=== PATIENT | female | born 1950 | race Two or more races ===

== ENCOUNTER 2021-01-12 13:06 | Inpatient (IN) | payer OTHER ==
[2021-01-12 14:51] LABS: HEMATOCRIT 25.3 % (32.4-45.2); HEMOGLOBIN 8.5 GM/dL (10.7-15.3); MCH 31.3 pg (25.7-33.7); MCHC 33.5 g/dl (32.0-36.0); MEAN CELL VOLUME 93.3 fl (80-96); MEAN PLT VOLUME 8.8 fl (7.5-11.1); PLATELET COUNT 177 10^3/uL (134-434); RBC 2.71 M/mm3 (3.60-5.2); WHITE BLOOD COUNT 22.5 K/mm3 (4.0-10.0)
[2021-01-12 15:12] LABS: CALCIUM 7.8 mg/dL (8.5-10.1)
[2021-01-12 15:13] LABS: BLOOD UREA NITROGEN 19.8 mg/dL (7-18)
[2021-01-12 15:16] LABS: CREATININE 1.3 mg/dL (0.55-1.3)
[2021-01-12 15:17] LABS: BILIRUBIN,TOTAL 0.6 mg/dL (0.2-1)
[2021-01-12 15:18] LABS: TOT PROT 8.1 g/dl (6.4-8.2)
[2021-01-12 17:02] LABS: ANISOCYTOSIS 2+
[2021-01-12 17:03] LABS: PLATELET ESTIMATE DECREASED
[2021-01-12 18:54] LABS: EPI CELLS 32 /uL (0-25.1); HYALINE CASTS 11 /uL (0-3.1); PH,URINE 5.5 (5.0-8.0); URINE APPEARANCE CLOUDY; URINE BACTERIA >9,000 /uL (0-1359); URINE BILIRUBIN 1+ (NEGATIVE); URINE COLOR DK YELLOW; URINE GLUCOSE (UA) NEGATIVE (NEGATIVE); URINE KETONE TRACE (NEGATIVE); URINE LEUK ESTERASE 3+ (NEGATIVE); URINE NITRITE NEGATIVE (NEGATIVE); URINE PROTEIN 1+ (NEGATIVE); URINE RBC 16 /uL (0-23.9); URINE WBC 517 /uL (0-25.8)
[2021-01-12] MEDS ORDERED: SODIUM CHLORIDE 0.9% 500 ML INFUS.BAG IV ONE (19:13)
[2021-01-12] MEDS ORDERED: CEFTRIAXONE 1 GM/50 ML BAG ONE (19:23)
[2021-01-12] MEDS ORDERED: ACETAMINOPHEN 500 MG TABLET (FP) PO ONE (20:12)
[2021-01-12] MEDS ORDERED: ACETAMINOPHEN 325 MG TABLET (FP) ONE (20:32)
[2021-01-12] MEDS ORDERED: ACETAMINOPHEN 1000 MG/100 ML VIAL (NON FORMULARY) IVPB ONE (21:00)
[2021-01-12] MEDS ORDERED: ACETAMINOPHEN 1000 MG/100 ML VIAL (NON FORMULARY) IVPB PRN (21:06)
[2021-01-12] MEDS ORDERED: PANTOPRAZOLE SODIUM 40 MG VIAL ONE (22:03)
[2021-01-12] MEDS ORDERED: ENOXAPARIN NA (PORCINE) 40 MG/0.4 ML DISP.SYRIN SQ ONE (22:03)
[2021-01-12] MEDS ORDERED: PIPERACILLIN/TAZOB 3.375 GM 3.375 GM/50 ML BAG IVPB ONE (22:03)
[2021-01-12] MEDS: SODIUM CHLORIDE 1,000 ML IV SCH (22:38)
[2021-01-12] MEDS: PIPERACILLIN/TAZOB 3.375 GM 3.375 GM in DEXTROSE 5%-WATER - 50 ML IVPB SCH (22:38)
[2021-01-12] MEDS: ENOXAPARIN NA (PORCINE) 40 MG/0.4 ML DISP.SYRIN SQ SCH (22:38)
[2021-01-12] MEDS: PANTOPRAZOLE SODIUM 40 MG VIAL IVPUSH SCH (22:38)
[2021-01-12] MEDS: INSULIN SLIDING SCALE (NOVOLOG) 1 VIAL SQ SCH (22:38)
[2021-01-13] MEDS: FERROUS SO4 325 MG TABLET (FP) PO SCH ×2 (02:09→10:54)
[2021-01-13] MEDS ORDERED: PIPERACILLIN/TAZOBACTAM 3.375 GM VIAL IVPB ONE ×3 (02:12→17:17)
[2021-01-13] MEDS ORDERED: DEXTROSE 5%-WATER - 50 ML IVPB ONE ×3 (02:12→17:18)
[2021-01-13] MEDS: PIPERACILLIN/TAZOB 3.375 GM 3.375 GM in DEXTROSE 5%-WATER - 50 ML IVPB SCH ×3 (02:36→18:25)
[2021-01-13 03:04] VITALS: BMI 32.5
[2021-01-13] MEDS ORDERED: INSULIN (NOVOLOG) ASPART 100 UNITS/ML 10ML VIAL ONE (06:31)
[2021-01-13] MEDS: INSULIN SLIDING SCALE (NOVOLOG) 1 VIAL SQ SCH ×4 (07:18→22:01)
[2021-01-13 09:36] LABS: BASO % 0.2 % (0-2.0); EOS % 0.5 % (0-4.5); HEMATOCRIT 24.6 % (32.4-45.2); HEMOGLOBIN 8.3 GM/dL (10.7-15.3); LYMPH % 8.7 % (8-40); MCH 31.3 pg (25.7-33.7); MCHC 33.8 g/dl (32.0-36.0); MEAN CELL VOLUME 92.8 fl (80-96); MEAN PLT VOLUME 9.1 fl (7.5-11.1); MONO % 12.2 % (3.8-10.2); NEUT % 78.4 % (42.8-82.8); PLATELET COUNT 156 10^3/uL (134-434); RBC 2.65 M/mm3 (3.60-5.2); RDW 20.6 % (11.6-15.6); WHITE BLOOD COUNT 16.7 K/mm3 (4.0-10.0)
[2021-01-13 09:58] LABS: CALCIUM 7.2 mg/dL (8.5-10.1)
[2021-01-13 09:59] LABS: ALBUMIN 1.8 g/dl (3.4-5.0); BLOOD UREA NITROGEN 16.6 mg/dL (7-18); MAGNESIUM 1.4 mg/dL (1.8-2.4)
[2021-01-13] MEDS ORDERED: FLU VACC QS2021-22(6MOS UP)/PF 60 MCG/0.5 ML SYRINGE IM ONE (10:00)
[2021-01-13 10:02] LABS: CREATININE 0.8 mg/dL (0.55-1.3); PHOSPHOROUS 2.1 mg/dL (2.5-4.9)
[2021-01-13 10:03] LABS: BILIRUBIN,TOTAL 0.5 mg/dL (0.2-1)
[2021-01-13 10:04] LABS: TOT PROT 7.2 g/dl (6.4-8.2)
[2021-01-13] MEDS: PANTOPRAZOLE SODIUM 40 MG VIAL IVPUSH SCH (10:51)
[2021-01-13] MEDS: ENOXAPARIN NA (PORCINE) 40 MG/0.4 ML DISP.SYRIN SQ SCH (10:55)
[2021-01-13] MEDS: SODIUM CHLORIDE 1,000 ML IV SCH (11:23)
[2021-01-13] MEDS ORDERED: ONDANSETRON 4 MG/2 ML VIAL IVPB SCH (15:30)
[2021-01-13] MEDS ORDERED: ONDANSETRON 4 MG/2 ML VIAL IVPB PRN (22:26)
[2021-01-13] MEDS ORDERED: MELATONIN 5 MG TABLETS PO ONE (23:05)
[2021-01-13] MEDS: ACETAMINOPHEN 325 MG TABLET (FP) PO PRN (23:20)
[2021-01-14] MEDS ORDERED: PIPERACILLIN/TAZOBACTAM 3.375 GM VIAL IVPB ONE (00:56)
[2021-01-14] MEDS ORDERED: DEXTROSE 5%-WATER - 50 ML IVPB ONE (00:56)
[2021-01-14] MEDS: PIPERACILLIN/TAZOB 3.375 GM 3.375 GM in DEXTROSE 5%-WATER - 50 ML IVPB SCH (01:14)
[2021-01-14] MEDS: INSULIN SLIDING SCALE (NOVOLOG) 1 VIAL SQ SCH ×4 (06:03→21:26)
[2021-01-14 08:19] LABS: BASO % 0.2 % (0-2.0); EOS % 1.3 % (0-4.5); HEMATOCRIT 27.3 % (32.4-45.2); HEMOGLOBIN 9.1 GM/dL (10.7-15.3); LYMPH % 10.8 % (8-40); MCH 30.8 pg (25.7-33.7); MCHC 33.2 g/dl (32.0-36.0); MEAN CELL VOLUME 92.8 fl (80-96); MONO % 15.3 % (3.8-10.2); NEUT % 72.4 % (42.8-82.8); PLATELET COUNT 163 10^3/uL (134-434); RBC 2.94 M/mm3 (3.60-5.2); RDW 20.8 % (11.6-15.6); WHITE BLOOD COUNT 13.8 K/mm3 (4.0-10.0)
[2021-01-14 08:38] LABS: ALBUMIN 1.9 g/dl (3.4-5.0); BLOOD UREA NITROGEN 10.5 mg/dL (7-18); CALCIUM 7.9 mg/dL (8.5-10.1)
[2021-01-14 08:42] LABS: CREATININE 0.7 mg/dL (0.55-1.3)
[2021-01-14 08:43] LABS: BILIRUBIN,TOTAL 0.5 mg/dL (0.2-1); TOT PROT 7.8 g/dl (6.4-8.2)
[2021-01-14] MEDS: FERROUS SO4 325 MG TABLET (FP) PO SCH (10:12)
[2021-01-14] MEDS: PANTOPRAZOLE SODIUM 40 MG VIAL IVPUSH SCH (10:12)
[2021-01-14] MEDS: ENOXAPARIN NA (PORCINE) 40 MG/0.4 ML DISP.SYRIN SQ SCH (10:12)
[2021-01-14 10:15] LABS: ANISOCYTOSIS 1+; MACROCYTOSIS 1+; PLATELET ESTIMATE DECREASED
[2021-01-14] MEDS ORDERED: DEXTROSE 5%-WATER 100 ML IVPB ONE (10:18)
[2021-01-14] MEDS: CEFTRIAXONE 2 GM in DEXTROSE 5%-WATER 100 ML IVPB SCH (10:30)
[2021-01-14] MEDS ORDERED: traZODone HCL 50 MG TABLET (FP) PO PRN (15:02)
[2021-01-14] MEDS ORDERED: METHOTREXATE 2.5 MG TABLET PO SCH (17:00)
[2021-01-14] MEDS ORDERED: PT OWN MED DRAWER 7, Y5N ONE (17:30)
[2021-01-14] MEDS: ACETAMINOPHEN 325 MG TABLET (FP) PO PRN (20:10)
[2021-01-14] MEDS ORDERED: INSULIN (NOVOLOG) ASPART 100 UNITS/ML 10ML VIAL ONE (21:18)
[2021-01-14] MEDS: ATORVASTATIN CA 10 MG TABLET (FP) PO SCH (21:26)
[2021-01-14] MEDS: APIXABAN 5 MG TABLET PO SCH (21:26)
[2021-01-15] MEDS: INSULIN SLIDING SCALE (NOVOLOG) 1 VIAL SQ SCH ×4 (06:20→22:28)
[2021-01-15] MEDS: LEVOTHYROXINE NA 25 MCG TABLET (FP) PO SCH (06:20)
[2021-01-15 08:12] LABS: HEMATOCRIT 26.6 % (32.4-45.2); HEMOGLOBIN 9.1 GM/dL (10.7-15.3); MCH 31.5 pg (25.7-33.7); MCHC 34.2 g/dl (32.0-36.0); MEAN CELL VOLUME 92.1 fl (80-96); PLATELET COUNT 194 10^3/uL (134-434); RBC 2.89 M/mm3 (3.60-5.2); RDW 20.5 % (11.6-15.6); WHITE BLOOD COUNT 8.1 K/mm3 (4.0-10.0)
[2021-01-15 08:35] LABS: ADD RBC MORPHOLOGY YES
[2021-01-15 08:40] LABS: CALCIUM 7.5 mg/dL (8.5-10.1)
[2021-01-15 08:41] LABS: ALBUMIN 1.9 g/dl (3.4-5.0); BLOOD UREA NITROGEN 9.2 mg/dL (7-18); MAGNESIUM 1.4 mg/dL (1.8-2.4)
[2021-01-15 08:44] LABS: CREATININE 0.6 mg/dL (0.55-1.3); PHOSPHOROUS 3.1 mg/dL (2.5-4.9)
[2021-01-15 08:46] LABS: BILIRUBIN,TOTAL 0.4 mg/dL (0.2-1); TOT PROT 7.9 g/dl (6.4-8.2)
[2021-01-15] MEDS ORDERED: DEXTROSE 5%-WATER 100 ML IVPB ONE (09:03)
[2021-01-15] MEDS: ESCITALOPRAM OXALATE 10 MG TABLET PO SCH (09:43)
[2021-01-15] MEDS: FERROUS SO4 325 MG TABLET (FP) PO SCH (09:44)
[2021-01-15] MEDS: PANTOPRAZOLE SODIUM 40 MG VIAL IVPUSH SCH (09:44)
[2021-01-15] MEDS: APIXABAN 5 MG TABLET PO SCH ×2 (09:44→22:20)
[2021-01-15] MEDS: CEFTRIAXONE 2 GM in DEXTROSE 5%-WATER 100 ML IVPB SCH (09:44)
[2021-01-15] MEDS: amLODIPine BESYLATE 5 MG TABLET (FP) PO SCH (09:44)
[2021-01-15] MEDS ORDERED: INSULIN (NOVOLOG) ASPART 100 UNITS/ML 10ML VIAL ONE ×2 (11:31→22:37)
[2021-01-15] MEDS: SOLIFENACIN SUCCINATE 5 MG TAB PO SCH (14:02)
[2021-01-15 14:03] LABS: ANISOCYTOSIS 0; MACROCYTOSIS 0; PLATELET ESTIMATE NORMAL; TARGET CELLS 1+
[2021-01-15] MEDS ORDERED: POTASSIUM CHLORIDE ORAL LIQUID 20 MEQ/15 ML PO ONE (14:05)
[2021-01-15] MEDS: ACETAMINOPHEN 325 MG TABLET (FP) PO PRN ×2 (16:27→22:21)
[2021-01-15 17:09] LABS: FREE KAPPA,SERUM 105.2 mg/L (3.3-19.4)
[2021-01-15] MEDS: ATORVASTATIN CA 10 MG TABLET (FP) PO SCH (22:22)
[2021-01-16] MEDS ORDERED: INSULIN (NOVOLOG) ASPART 100 UNITS/ML 10ML VIAL ONE (06:41)
[2021-01-16] MEDS: LEVOTHYROXINE NA 25 MCG TABLET (FP) PO SCH (06:43)
[2021-01-16] MEDS: INSULIN SLIDING SCALE (NOVOLOG) 1 VIAL SQ SCH ×2 (06:45→12:02)
[2021-01-16 07:11] LABS: BASO % 0.6 % (0-2.0); HEMATOCRIT 26.6 % (32.4-45.2); LYMPH % 28.1 % (8-40); MCH 30.7 pg (25.7-33.7); MCHC 33.8 g/dl (32.0-36.0); MEAN PLT VOLUME 8.4 fl (7.5-11.1); MONO % 21.6 % (3.8-10.2); NEUT % 47.7 % (42.8-82.8); PLATELET COUNT 210 10^3/uL (134-434); RBC 2.93 M/mm3 (3.60-5.2); WHITE BLOOD COUNT 6.9 K/mm3 (4.0-10.0)
[2021-01-16 08:11] LABS: CALCIUM 7.8 mg/dL (8.5-10.1)
[2021-01-16 08:12] LABS: BLOOD UREA NITROGEN 7.3 mg/dL (7-18); MAGNESIUM 1.4 mg/dL (1.8-2.4)
[2021-01-16 08:15] LABS: CREATININE 0.6 mg/dL (0.55-1.3); PHOSPHOROUS 2.8 mg/dL (2.5-4.9)
[2021-01-16 08:16] LABS: BILIRUBIN,TOTAL 0.4 mg/dL (0.2-1)
[2021-01-16 09:36] LABS: ANISOCYTOSIS 0; MACROCYTOSIS 0; PLATELET ESTIMATE NORMAL
[2021-01-16] MEDS ORDERED: DEXTROSE 5%-WATER 100 ML IVPB ONE (10:13)
[2021-01-16] MEDS: ACETAMINOPHEN 325 MG TABLET (FP) PO PRN (10:20)
[2021-01-16] MEDS: PANTOPRAZOLE SODIUM 40 MG VIAL IVPUSH SCH (10:21)
[2021-01-16] MEDS: CEFTRIAXONE 2 GM in DEXTROSE 5%-WATER 100 ML IVPB SCH (10:21)
[2021-01-16] MEDS: APIXABAN 5 MG TABLET PO SCH (10:22)
[2021-01-16] MEDS: amLODIPine BESYLATE 5 MG TABLET (FP) PO SCH (10:22)
[2021-01-16] MEDS: FERROUS SO4 325 MG TABLET (FP) PO SCH (10:22)
[2021-01-16] MEDS: ESCITALOPRAM OXALATE 10 MG TABLET PO SCH (10:22)
[2021-01-16] MEDS: SOLIFENACIN SUCCINATE 5 MG TAB PO SCH (10:22)
[2021-01-16] MEDS ORDERED: IBUPROFEN 200 MG TABLET PO ONE (11:08)
[2021-01-16 12:04] VITALS: BP 157/67; PULSE 82; TEMP 98.3
== END 2021-01-16 14:36 | disposition home or self-care (01) | DRG 690 ==
LOC: JER 13:06 → JERBED 19:43 → J8W 01-13 00:25
PROVIDERS: ADMIT Internal Medicine
DX: N39.0 Urinary tract infection, site not specified (principal); N17.9 Acute kidney failure, unspecified; E87.1 Hypo-osmolality and hyponatremia; R78.81 Bacteremia; J98.11 Atelectasis; E11.65 Type 2 diabetes mellitus with hyperglycemia; E03.9 Hypothyroidism, unspecified; J45.909 Unspecified asthma, uncomplicated; I10 Essential (primary) hypertension; D72.829 Elevated white blood cell count, unspecified; I51.7 Cardiomegaly; F41.9 Anxiety disorder, unspecified; K21.9 Gastro-esophageal reflux disease without esophagitis
CPT/HCPCS: 36415; 71045-TC-FY; 76700-TC; 76856-TC; 80053; 81003; 82306; 82436; 82570; 82728; 82962; 83540; 83550; 83735; 83883; 83930; 83935; 83970; 84100; 84133; 84155; 84156; 84165; 84300; 84439; 84443; 85025; 85045; 87040; 87086; 87186; 93005; 93010; 97116-GP; 97161-GP; 99285-25; C9803; J0131; J8610; U0003; U0005